=== PATIENT | female | born 1940 | race Asian ===

== ENCOUNTER 2023-01-25 03:22 | Inpatient (IN) | payer OTHER ==
[~2023-01-25] VITALS: Ht 152.4 cm; Wt 51.7 kg
[2023-01-25 03:29] VITALS: BP_SYST 119; PULSE 94; RESP 18; TEMP 98.3; O2SAT 100
[2023-01-25] MEDS ORDERED: ONDANSETRON HCL 4 MG/2 ML VIAL IVP ONE (04:00)
[2023-01-25] MEDS ORDERED: MORPHINE 4 MG INJ. 4 MG/ML VIAL IVP ONE (04:00)
[2023-01-25] MEDS ORDERED: NACL 0.9% 1,000 ML IV ONE (04:00)
[2023-01-25 04:42] LABS: BASOPHILS % (AUTO) 0.1 % (0.0-2.0); EOSINOPHILS # (AUTO) 0.1 K/uL (0.0-0.4); EOSINOPHILS % (AUTO) 0.6 % (0.0-4.0); HEMATOCRIT 30.5 % (36-48); HEMOGLOBIN 9.9 g/dL (12.0-16.0); LYMPHOCYTES % (AUTO) 7.2 % (20.5-51.5); MEAN CORPUSCULAR HEMOGLOBIN 26 pg (27-31); MEAN CORPUSCULAR HGB CONC 33 % (32-36); MEAN CORPUSCULAR VOLUME 81 fL (79.0-98.0); MONOCYTES # (AUTO) 1.9 K/uL (0.0-1.0); MONOCYTES % (AUTO) 13.8 % (1.7-9.3); NEUTROPHILS # (AUTO) 11.1 K/uL (1.8-7.7); NEUTROPHILS % (AUTO) 78.3 % (40.0-70.0); PLATELET COUNT (AUTO) 344 K/uL (130-430); RED BLOOD CELL COUNT(AUTO) 3.75 MIL/uL (4.2-6.2); RED CELL DISTRIBUTION WIDTH 14.1 % (9.0-15.0); WHITE BLOOD COUNT (AUTO) 14.1 K/uL (4.8-10.8)
[2023-01-25 05:08] LABS: ALANINE AMINOTRANSFERASE 18 U/L (12-78); ALBUMIN 2.8 g/dL (3.4-4.8); ANION GAP 11 (5-15); ASPARTATE AMINOTRANSFERASE 13 U/L (10-37); CALCIUM 9.1 mg/dL (8.4-11.0); CARBON DIOXIDE 24 mmol/L (23-29); CREATININE 0.95 mg/dL (0.55-1.30); GLUCOSE 211 mg/dL (74-106); LIPASE 38 U/L (16-77); POTASSIUM 3.3 mmol/L (3.5-5.1); SODIUM SERUM 120 mmol/L (136-145); TOTAL BILIRUBIN 0.5 mg/dL (0.0-1.0); TOTAL PROTEIN, SERUM 7.6 g/dL (6.4-8.3); UREA NITROGEN, BLOOD 10 mg/dL (8-21)
[2023-01-25 05:32] LABS: CLARITY/URINE SLIGHTLY CLOUDY (CLEAR); COLOR,URINE YELLOW (YELLOW)
[2023-01-25 05:33] LABS: BILIRUBIN,URINE NEGATIVE (NEGATIVE); BLOOD, URINE 1+ (NEGATIVE); GLUCOSE,URINE TRACE (NEGATIVE); KETONES,URINE 1+ (NEGATIVE); LEUKOCYTE ESTERASE ,URINE 1+ (NEGATIVE); NITRITE, URINE POSITIVE (NEGATIVE); PROTEIN URINE 2+ (NEGATIVE); UROBILINOGEN,URINE 0.2 (0.2-1.0)
[2023-01-25 05:35] LABS: BACTERIA,URINE MODERATE /HPF (None Seen); WBC,URINE 20-50 /HPF (0-3)
[2023-01-25 05:48] LABS: CHLORIDE 85 mmol/L (98-107)
[2023-01-25] MEDS ORDERED: SODI1TAB3 PO (08:56)
[2023-01-25] MEDS ORDERED: SODI1POW18 PO (08:56)
[2023-01-25] MEDS ORDERED: LOSA100T24 PO (08:56)
[2023-01-25] MEDS ORDERED: METF-380 PO (08:56)
[2023-01-25] MEDS ORDERED: FERR325T30 PO (08:56)
[2023-01-25] MEDS ORDERED: PRAV20TA59 PO (08:56)
[2023-01-25] MEDS ORDERED: AMLO5TAB92 PO (08:56)
[2023-01-25] MEDS ORDERED: CLOP75TA32 PO (08:56)
[2023-01-25] MEDS ORDERED: LEVO75CA5 PO (08:56)
[2023-01-25] MEDS ORDERED: METO-540 PO (08:56)
[2023-01-25] MEDS ORDERED: GLUC100017 PO (08:56)
[2023-01-25] MEDS ORDERED: GLUC500T13 PO (09:06)
[2023-01-25] MEDS ORDERED: NACL 0.9% 1,000 ML IV SCH (09:30)
[2023-01-25 11:57] VITALS: BP_SYST 144; PULSE 82; RESP 16; TEMP 98.3; O2SAT 98
[2023-01-25 12:18] VITALS: BP_SYST 144; PULSE 82; RESP 16; TEMP 98.3; O2SAT 98
[2023-01-25] MEDS: PIPERACILLIN/TAZO 3.375/DEX-IS 50 ML IV SCH ×2 (16:30→21:01)
[2023-01-25 16:33] VITALS: BP_SYST 143; PULSE 82; RESP 17; TEMP 98.4; O2SAT 97
[2023-01-25] MEDS ORDERED: ONDANSETRON HCL 4 MG/2 ML VIAL IVP PRN (17:45)
[2023-01-25] MEDS ORDERED: NALOXONE HCL 0.4 MG/ML AMP (NARCAN) IVP PRN (17:45)
[2023-01-25] MEDS ORDERED: D5NS 500 ML IV SCH (18:00)
[2023-01-25] MEDS: D5NS 1,000 ML IV SCH (18:09)
[2023-01-25 19:31] VITALS: BP_SYST 145; PULSE 87; RESP 20; TEMP 97.6; O2SAT 96
[2023-01-25] MEDS: INSULIN REGULAR, HUMAN 100 UNITS/ML, 3 ML VIAL (humuLIN R) SUBCUT PRN (20:58)
[2023-01-26] VITALS: BP_SYST 143; PULSE 97; RESP 18; TEMP 99; O2SAT 96
[2023-01-26] MEDS: PIPERACILLIN/TAZO 3.375/DEX-IS 50 ML IV SCH ×3 (05:38→21:51)
[2023-01-26] MEDS: INSULIN REGULAR, HUMAN 100 UNITS/ML, 3 ML VIAL (humuLIN R) SUBCUT PRN ×4 (05:42→20:40)
[2023-01-26 08:00] VITALS: BP_SYST 116; PULSE 89; RESP 18; TEMP 97.6; O2SAT 96
[2023-01-26 09:59] LABS: ANION GAP 11 (5-15); CALCIUM 8.6 mg/dL (8.4-11.0); CARBON DIOXIDE 25 mmol/L (23-29); CHLORIDE 94 mmol/L (98-107); CREATININE 0.94 mg/dL (0.55-1.30); GLUCOSE 131 mg/dL (74-106); SODIUM SERUM 130 mmol/L (136-145); UREA NITROGEN, BLOOD 6 mg/dL (8-21)
[2023-01-26 10:01] LABS: POTASSIUM 2.5 mmol/L (3.5-5.1)
[2023-01-26] MEDS ORDERED: KCL 40 mEq in 100 mL (PREMIX) 100 ML IV ONE (10:15)
[2023-01-26] MEDS: POTASSIUM CHLORIDE 20 mEq in 100 mL (PREMIX) 100 ML x 2 doses IV SCH ×2 (11:43→15:57)
[2023-01-26 12:00] VITALS: BP_SYST 136; PULSE 78; RESP 18; TEMP 98.6; O2SAT 99
[2023-01-26] MEDS: D5NS 1,000 ML IV SCH (14:15)
[2023-01-26 16:00] VITALS: BP_SYST 119; PULSE 82; RESP 18; TEMP 96.7; O2SAT 97
[2023-01-26 19:35] VITALS: O2SAT 98
[2023-01-26 20:03] VITALS: BP_SYST 121; PULSE 98; RESP 18; TEMP 98.3; O2SAT 98
[2023-01-26] MEDS: ATORVASTATIN 10 MG TABLET PO SCH (20:34)
[2023-01-26] MEDS: amLODIPine BESYLATE 5 MG TABLET PO SCH (20:34)
[2023-01-26] MEDS ORDERED: PRAVASTATIN SODIUM 20 MG TABLET (PRAVACHOL) PO SCH (21:00)
[2023-01-27] VITALS (9 sets, daily range): BP systolic 121–148; PULSE 78–101; RESP 16–19; TEMP 97.5–99.5; O2SAT 68–99
[2023-01-27 04:18] LABS: BASOPHILS % (AUTO) 0.3 % (0.0-2.0); EOSINOPHILS # (AUTO) 0.2 K/uL (0.0-0.4); EOSINOPHILS % (AUTO) 1.6 % (0.0-4.0); HEMATOCRIT 29.2 % (36-48); HEMOGLOBIN 9.6 g/dL (12.0-16.0); LYMPHOCYTES # (AUTO) 2.2 K/uL (1.0-5.5); MEAN CORPUSCULAR HEMOGLOBIN 27 pg (27-31); MEAN CORPUSCULAR HGB CONC 33 % (32-36); MEAN CORPUSCULAR VOLUME 81 fL (79.0-98.0); MONOCYTES # (AUTO) 1.6 K/uL (0.0-1.0); MONOCYTES % (AUTO) 14.4 % (1.7-9.3); NEUTROPHILS # (AUTO) 7.1 K/uL (1.8-7.7); NEUTROPHILS % (AUTO) 63.7 % (40.0-70.0); PLATELET COUNT (AUTO) 371 K/uL (130-430); RED CELL DISTRIBUTION WIDTH 14.1 % (9.0-15.0); WHITE BLOOD COUNT (AUTO) 11.1 K/uL (4.8-10.8)
[2023-01-27 04:33] LABS: ANION GAP 11 (5-15); CALCIUM 8.7 mg/dL (8.4-11.0); CARBON DIOXIDE 24 mmol/L (23-29); CHLORIDE 95 mmol/L (98-107); CREATININE 0.99 mg/dL (0.55-1.30); GLUCOSE 215 mg/dL (74-106); SODIUM SERUM 130 mmol/L (136-145); UREA NITROGEN, BLOOD 7 mg/dL (8-21)
[2023-01-27] MEDS: PIPERACILLIN/TAZO 3.375/DEX-IS 50 ML IV SCH ×3 (05:03→21:02)
[2023-01-27] MEDS: MORPHINE 2 MG/ML INJ. SYRINGE IVP PRN ×2 (05:08→13:42)
[2023-01-27] MEDS: INSULIN REGULAR, HUMAN 100 UNITS/ML, 3 ML VIAL (humuLIN R) SUBCUT PRN ×4 (06:35→21:06)
[2023-01-27] MEDS: SODIUM CHLORIDE 500 MG TABLET PO SCH (09:20)
[2023-01-27] MEDS: FERROUS SULFATE 325 MG TABLET.DR PO SCH (09:20)
[2023-01-27] MEDS: amLODIPine BESYLATE 5 MG TABLET PO SCH ×2 (09:21→21:01)
[2023-01-27] MEDS: METOPROLOL SUCCINATE 25 MG TAB.SR.24H (TOPROL XL) PO SCH (09:21)
[2023-01-27] MEDS: LOSARTAN POTASSIUM 50 MG TABLET (COZAAR) PO SCH (09:21)
[2023-01-27] MEDS: D5NS 1,000 ML IV SCH (09:22)
[2023-01-27] MEDS ORDERED: methylPREDNISolone 4 MG TABLET PO SCH (11:00)
[2023-01-27] MEDS ORDERED: methylPREDNISolone 4 MG TABLET PO ONE ×3 (11:30→21:00)
[2023-01-27] MEDS: ATORVASTATIN 10 MG TABLET PO SCH (21:01)
[2023-01-27] MEDS: MORPHINE 4 MG INJ. 4 MG/ML VIAL IVP PRN (21:03)
[2023-01-28 00:05] VITALS: BP_SYST 114; PULSE 72; RESP 18; TEMP 97.6; O2SAT 95
[2023-01-28 05:22] LABS: ALANINE AMINOTRANSFERASE 76 U/L (12-78); ALBUMIN 2.2 g/dL (3.4-4.8); ANION GAP 11 (5-15); ASPARTATE AMINOTRANSFERASE 48 U/L (10-37); CALCIUM 8.5 mg/dL (8.4-11.0); CARBON DIOXIDE 23 mmol/L (23-29); CHLORIDE 97 mmol/L (98-107); CREATININE 0.88 mg/dL (0.55-1.30); GLUCOSE 227 mg/dL (74-106); POTASSIUM 3.4 mmol/L (3.5-5.1); SODIUM SERUM 131 mmol/L (136-145); TOTAL BILIRUBIN 0.3 mg/dL (0.0-1.0); TOTAL PROTEIN, SERUM 5.8 g/dL (6.4-8.3); UREA NITROGEN, BLOOD 9 mg/dL (8-21)
[2023-01-28] MEDS: D5NS 1,000 ML IV SCH ×2 (06:08→22:18)
[2023-01-28] MEDS: PIPERACILLIN/TAZO 3.375/DEX-IS 50 ML IV SCH ×3 (06:08→22:14)
[2023-01-28] MEDS: INSULIN REGULAR, HUMAN 100 UNITS/ML, 3 ML VIAL (humuLIN R) SUBCUT PRN ×4 (06:14→22:28)
[2023-01-28] MEDS ORDERED: methylPREDNISolone 4 MG TABLET PO SCH (07:00)
[2023-01-28 07:51] VITALS: BP_SYST 135; PULSE 80; RESP 18; TEMP 98.4
[2023-01-28 08:00] VITALS: O2SAT 99
[2023-01-28] MEDS: METOPROLOL SUCCINATE 25 MG TAB.SR.24H (TOPROL XL) PO SCH (09:11)
[2023-01-28] MEDS: SODIUM CHLORIDE 500 MG TABLET PO SCH (09:12)
[2023-01-28] MEDS: FERROUS SULFATE 325 MG TABLET.DR PO SCH (09:12)
[2023-01-28] MEDS: amLODIPine BESYLATE 5 MG TABLET PO SCH ×2 (09:12→20:18)
[2023-01-28] MEDS: LOSARTAN POTASSIUM 50 MG TABLET (COZAAR) PO SCH (09:12)
[2023-01-28] MEDS: methylPREDNISolone 4 MG TABLET PO SCH ×3 (09:12→17:38)
[2023-01-28 12:39] VITALS: BP_SYST 125; PULSE 73; RESP 18; TEMP 98.4; O2SAT 96
[2023-01-28] MEDS ORDERED: POTASSIUM CHLORIDE 20 MEQ TAB.PRT.SR PO ONE (12:45)
[2023-01-28 16:00] VITALS: BP_SYST 120; PULSE 75; RESP 20; TEMP 98; O2SAT 96
[2023-01-28 20:00] VITALS: BP_SYST 154; PULSE 82; RESP 20; O2SAT 100
[2023-01-28] MEDS: ATORVASTATIN 10 MG TABLET PO SCH (20:40)
[2023-01-28] MEDS ORDERED: methylPREDNISolone 4 MG TABLET PO ONE (21:00)
[2023-01-29 03:20] VITALS: BP_SYST 151; PULSE 82; RESP 20; O2SAT 99
[2023-01-29 05:30] LABS: BASOPHILS % (AUTO) 0.1 % (0.0-2.0); HEMATOCRIT 30.3 % (36-48); HEMOGLOBIN 9.9 g/dL (12.0-16.0); LYMPHOCYTES # (AUTO) 1.3 K/uL (1.0-5.5); LYMPHOCYTES % (AUTO) 7.9 % (20.5-51.5); MEAN CORPUSCULAR HEMOGLOBIN 27 pg (27-31); MEAN CORPUSCULAR HGB CONC 33 % (32-36); MEAN CORPUSCULAR VOLUME 81 fL (79.0-98.0); MONOCYTES # (AUTO) 1.2 K/uL (0.0-1.0); MONOCYTES % (AUTO) 7.2 % (1.7-9.3); NEUTROPHILS # (AUTO) 14.3 K/uL (1.8-7.7); NEUTROPHILS % (AUTO) 84.8 % (40.0-70.0); PLATELET COUNT (AUTO) 554 K/uL (130-430); RED BLOOD CELL COUNT(AUTO) 3.72 MIL/uL (4.2-6.2); RED CELL DISTRIBUTION WIDTH 14.3 % (9.0-15.0); WHITE BLOOD COUNT (AUTO) 16.8 K/uL (4.8-10.8)
[2023-01-29 05:55] LABS: INR 0.9 (0.8-1.2); PROTHROMBIN TIME 9.5 SECS (9.5-12.5)
[2023-01-29 06:05] LABS: ALANINE AMINOTRANSFERASE 55 U/L (12-78); ALBUMIN 2.2 g/dL (3.4-4.8); ANION GAP 10 (5-15); ASPARTATE AMINOTRANSFERASE 22 U/L (10-37); CALCIUM 9.1 mg/dL (8.4-11.0); CARBON DIOXIDE 24 mmol/L (23-29); CHLORIDE 93 mmol/L (98-107); GLUCOSE 300 mg/dL (74-106); POTASSIUM 3.2 mmol/L (3.5-5.1); SODIUM SERUM 127 mmol/L (136-145); TOTAL BILIRUBIN 0.3 mg/dL (0.0-1.0); TOTAL PROTEIN, SERUM 7.3 g/dL (6.4-8.3); UREA NITROGEN, BLOOD 8 mg/dL (8-21)
[2023-01-29] MEDS: PIPERACILLIN/TAZO 3.375/DEX-IS 50 ML IV SCH ×3 (06:32→22:00)
[2023-01-29] MEDS: methylPREDNISolone 4 MG TABLET PO SCH ×3 (06:54→16:27)
[2023-01-29] MEDS: INSULIN REGULAR, HUMAN 100 UNITS/ML, 3 ML VIAL (humuLIN R) SUBCUT PRN ×2 (06:57→23:02)
[2023-01-29 08:00] VITALS: BP_SYST 141; PULSE 72; RESP 18; TEMP 97; O2SAT 99
[2023-01-29] MEDS: FERROUS SULFATE 325 MG TABLET.DR PO SCH (09:00)
[2023-01-29] MEDS ORDERED: FUROSEMIDE 20 MG/2 ML VIAL IVP ONE (10:15)
[2023-01-29] MEDS ORDERED: KCL 20 mEq in 100 mL (PREMIX) 100 ML IV ONE (11:00)
[2023-01-29] MEDS: SODIUM CHLORIDE 500 MG TABLET PO SCH (11:22)
[2023-01-29] MEDS: amLODIPine BESYLATE 5 MG TABLET PO SCH ×2 (11:23→21:00)
[2023-01-29] MEDS: LOSARTAN POTASSIUM 50 MG TABLET (COZAAR) PO SCH (11:24)
[2023-01-29] MEDS: METOPROLOL SUCCINATE 25 MG TAB.SR.24H (TOPROL XL) PO SCH (11:24)
[2023-01-29] MEDS ORDERED: SODIUM CHLORIDE 3% *HI-ALERT* 100 ML IV ONE (11:30)
[2023-01-29] MEDS ORDERED: SODIUM CHLORIDE 3% *HI-ALERT* 100 ML IV SCH (11:30)
[2023-01-29 13:04] LABS: ANION GAP 9 (5-15); CALCIUM 8.7 mg/dL (8.4-11.0); CARBON DIOXIDE 27 mmol/L (23-29); CHLORIDE 97 mmol/L (98-107); CREATININE 0.85 mg/dL (0.55-1.30); GLUCOSE 215 mg/dL (74-106); POTASSIUM 3.1 mmol/L (3.5-5.1); SODIUM SERUM 133 mmol/L (136-145); UREA NITROGEN, BLOOD 7 mg/dL (8-21)
[2023-01-29 15:50] LABS: ANION GAP 10 (5-15); CALCIUM 8.3 mg/dL (8.4-11.0); CARBON DIOXIDE 26 mmol/L (23-29); CHLORIDE 98 mmol/L (98-107); CREATININE 0.78 mg/dL (0.55-1.30); GLUCOSE 216 mg/dL (74-106); POTASSIUM 3.5 mmol/L (3.5-5.1); SODIUM SERUM 134 mmol/L (136-145); UREA NITROGEN, BLOOD 8 mg/dL (8-21)
[2023-01-29] MEDS ORDERED: BUPIVACAINE /PF 0.25% 10 ML VIAL INJ ONE (15:56)
[2023-01-29] MEDS ORDERED: CEFAZOLIN 2 GM IVPB PREMIX 50 ML IV ONE (15:56)
[2023-01-29] MEDS ORDERED: NS 50 ML BAG IV ONE (15:56)
[2023-01-29] MEDS ORDERED: DEXAMETHASONE SOD PHOSPHATE 4 MG/ML VIAL ONE (15:56)
[2023-01-29] MEDS ORDERED: LR 1,000 ML IV.SOLN IV ONE (15:56)
[2023-01-29] MEDS ORDERED: NS IRRIG SOLN 1000 ML IR ONE (15:56)
[2023-01-29] MEDS ORDERED: PROPOFOL 200MG/ 20ML VIAL (DIPRIVAN) IV ONE (15:56)
[2023-01-29] MEDS ORDERED: TRANEXAMIC ACID 1,000 MG/10 ML VIAL IV ONE (15:56)
[2023-01-29] MEDS ORDERED: WATER FOR IRRIGATION,STERILE 1,000 ML IRRIG.SOLN IR ONE (15:56)
[2023-01-29] MEDS ORDERED: KETOROLAC TROMETHAMINE 30 MG VIAL ONE (15:56)
[2023-01-29] MEDS ORDERED: ACETAMINOPHEN I.V. 1000 MG 100 ML IV ONE (18:37)
[2023-01-29] MEDS ORDERED: fentaNYL CITRATE/PF 100 MCG/2 ML AMP ONE (18:37)
[2023-01-29] MEDS ORDERED: ONDANSETRON HCL 4 MG/2 ML VIAL IVP PRN (19:30)
[2023-01-29] MEDS ORDERED: HYDROmorphone 1 MG/ML INJ. CARTRIDGE IVP PRN (19:30)
[2023-01-29] MEDS ORDERED: NALOXONE HCL 0.4 MG/ML AMP (NARCAN) IVP PRN ×2 (19:30)
[2023-01-29] MEDS ORDERED: hydrALAZINE HCL 20 MG/ML VIAL IV PRN (19:30)
[2023-01-29] MEDS ORDERED: ALBUMIN HUMAN 5% 500 ML IV ONE (19:46)
[2023-01-29] MEDS ORDERED: THROMBIN (BOVINE) 5000 UNITS/ VIAL TP ONE (20:15)
[2023-01-29] MEDS ORDERED: SEVOFLURANE 15 MIN GAS INH ONE (22:14)
[2023-01-29] MEDS: HYDROmorphone 1 MG/ML INJ. CARTRIDGE IVP PRN (22:34)
[2023-01-29 22:40] LABS: BASOPHILS # (AUTO) 0.1 K/uL (0.0-0.2); BASOPHILS % (AUTO) 0.5 % (0.0-2.0); EOSINOPHILS % (AUTO) 0.1 % (0.0-4.0); LYMPHOCYTES # (AUTO) 1.9 K/uL (1.0-5.5); LYMPHOCYTES % (AUTO) 10.9 % (20.5-51.5); MEAN CORPUSCULAR HEMOGLOBIN 27 pg (27-31); MEAN CORPUSCULAR HGB CONC 33 % (32-36); MEAN CORPUSCULAR VOLUME 82 fL (79.0-98.0); MONOCYTES # (AUTO) 0.9 K/uL (0.0-1.0); MONOCYTES % (AUTO) 5.3 % (1.7-9.3); NEUTROPHILS # (AUTO) 14.3 K/uL (1.8-7.7); NEUTROPHILS % (AUTO) 83.2 % (40.0-70.0); PLATELET COUNT (AUTO) 431 K/uL (130-430); RED BLOOD CELL COUNT(AUTO) 2.29 MIL/uL (4.2-6.2); RED CELL DISTRIBUTION WIDTH 14.5 % (9.0-15.0); WHITE BLOOD COUNT (AUTO) 17.2 K/uL (4.8-10.8)
[2023-01-29 22:54] LABS: HEMATOCRIT 18.7 % (36-48); HEMOGLOBIN 6.1 g/dL (12.0-16.0)
[2023-01-29 23:00] VITALS: BP_SYST 141; PULSE 62; RESP 18; O2SAT 100
[2023-01-29 23:00] LABS: ALANINE AMINOTRANSFERASE 79 U/L (12-78); ALBUMIN 2.6 g/dL (3.4-4.8); ANION GAP 10 (5-15); ASPARTATE AMINOTRANSFERASE 87 U/L (10-37); CALCIUM 8.1 mg/dL (8.4-11.0); CARBON DIOXIDE 23 mmol/L (23-29); CHLORIDE 101 mmol/L (98-107); CREATININE 0.91 mg/dL (0.55-1.30); GLUCOSE 331 mg/dL (74-106); POTASSIUM 3.3 mmol/L (3.5-5.1); SODIUM SERUM 134 mmol/L (136-145); TOTAL BILIRUBIN 0.2 mg/dL (0.0-1.0); TOTAL PROTEIN, SERUM 5.5 g/dL (6.4-8.3); UREA NITROGEN, BLOOD 11 mg/dL (8-21)
[2023-01-29] MEDS: KCL 20 mEq in D5NS 1000 mL 1,000 ML IV SCH (23:00)
[2023-01-29] MEDS ORDERED: KCL 20 mEq in D5NS 1000 mL 1,000 ML IV ONE (23:01)
[2023-01-30] VITALS (24 sets, daily range): BP systolic 123–190; PULSE 67–77; RESP 13–24; TEMP 96–98.5; O2SAT 95–100
[2023-01-30] MEDS: MORPHINE 2 MG/ML INJ. SYRINGE IVP PRN (00:55)
[2023-01-30] MEDS ORDERED: KCL 20 mEq in 100 mL (PREMIX) 100 ML IV ONE ×2 (01:30→23:00)
[2023-01-30] MEDS: ATORVASTATIN 10 MG TABLET PO SCH ×2 (04:02→21:09)
[2023-01-30] MEDS: methylPREDNISolone 4 MG TABLET PO SCH ×4 (04:02→21:09)
[2023-01-30] MEDS: PIPERACILLIN/TAZO 3.375/DEX-IS 50 ML IV SCH ×3 (05:49→21:10)
[2023-01-30] MEDS: INSULIN REGULAR, HUMAN 100 UNITS/ML, 3 ML VIAL (humuLIN R) SUBCUT PRN ×5 (06:07→21:15)
[2023-01-30] MEDS: MORPHINE 4 MG INJ. 4 MG/ML VIAL IVP PRN ×2 (07:28→18:46)
[2023-01-30 08:11] LABS: BASOPHILS % (AUTO) 0.2 % (0.0-2.0); EOSINOPHILS % (AUTO) 0.1 % (0.0-4.0); HEMATOCRIT 38.4 % (36-48); HEMOGLOBIN 12.6 g/dL (12.0-16.0); LYMPHOCYTES # (AUTO) 1.4 K/uL (1.0-5.5); LYMPHOCYTES % (AUTO) 6.9 % (20.5-51.5); MEAN CORPUSCULAR HEMOGLOBIN 28 pg (27-31); MEAN CORPUSCULAR HGB CONC 33 % (32-36); MEAN CORPUSCULAR VOLUME 86 fL (79.0-98.0); MONOCYTES # (AUTO) 1.3 K/uL (0.0-1.0); MONOCYTES % (AUTO) 6.1 % (1.7-9.3); NEUTROPHILS # (AUTO) 17.9 K/uL (1.8-7.7); NEUTROPHILS % (AUTO) 86.7 % (40.0-70.0); PLATELET COUNT (AUTO) 386 K/uL (130-430); RED BLOOD CELL COUNT(AUTO) 4.49 MIL/uL (4.2-6.2); RED CELL DISTRIBUTION WIDTH 16.4 % (9.0-15.0); WHITE BLOOD COUNT (AUTO) 20.7 K/uL (4.8-10.8)
[2023-01-30] MEDS: SODIUM CHLORIDE 500 MG TABLET PO SCH (08:53)
[2023-01-30] MEDS: FERROUS SULFATE 325 MG TABLET.DR PO SCH (08:53)
[2023-01-30] MEDS: METOPROLOL SUCCINATE 25 MG TAB.SR.24H (TOPROL XL) PO SCH (08:54)
[2023-01-30] MEDS: LOSARTAN POTASSIUM 50 MG TABLET (COZAAR) PO SCH (08:54)
[2023-01-30] MEDS: amLODIPine BESYLATE 5 MG TABLET PO SCH ×2 (09:02→21:09)
[2023-01-30] MEDS: HYDROmorphone 1 MG/ML INJ. CARTRIDGE IVP PRN (14:00)
[2023-01-30] MEDS ORDERED: INSULIN REGULAR, HUMAN 10 UNITS/0.1 ML, 3 ML VIAL IVP ONE ×2 (18:15→23:00)
[2023-01-30] MEDS: KCL 20 mEq in D5NS 1000 mL 1,000 ML IV SCH ×2 (18:16→19:00)
[2023-01-30] MEDS: NACL 0.9% 1,000 ML IV SCH (23:26)
[2023-01-31] VITALS (20 sets, daily range): BP systolic 140–182; PULSE 69–86; RESP 15–28; TEMP 97–98.3; O2SAT 95–100
[2023-01-31 05:55] LABS: BASOPHILS % (AUTO) 0.1 % (0.0-2.0); EOSINOPHILS % (AUTO) 0.1 % (0.0-4.0); HEMATOCRIT 37.9 % (36-48); HEMOGLOBIN 12.4 g/dL (12.0-16.0); LYMPHOCYTES # (AUTO) 2.1 K/uL (1.0-5.5); LYMPHOCYTES % (AUTO) 9.7 % (20.5-51.5); MEAN CORPUSCULAR HEMOGLOBIN 28 pg (27-31); MEAN CORPUSCULAR HGB CONC 33 % (32-36); MEAN CORPUSCULAR VOLUME 86 fL (79.0-98.0); MONOCYTES # (AUTO) 1.6 K/uL (0.0-1.0); MONOCYTES % (AUTO) 7.5 % (1.7-9.3); NEUTROPHILS # (AUTO) 17.6 K/uL (1.8-7.7); NEUTROPHILS % (AUTO) 82.6 % (40.0-70.0); PLATELET COUNT (AUTO) 407 K/uL (130-430); RED BLOOD CELL COUNT(AUTO) 4.41 MIL/uL (4.2-6.2); RED CELL DISTRIBUTION WIDTH 16.5 % (9.0-15.0); WHITE BLOOD COUNT (AUTO) 21.3 K/uL (4.8-10.8)
[2023-01-31] MEDS: PIPERACILLIN/TAZO 3.375/DEX-IS 50 ML IV SCH ×3 (05:59→21:21)
[2023-01-31] MEDS: INSULIN REGULAR, HUMAN 100 UNITS/ML, 3 ML VIAL (humuLIN R) SUBCUT PRN ×4 (06:03→20:38)
[2023-01-31 06:12] LABS: ANION GAP 9 (5-15); CALCIUM 8.9 mg/dL (8.4-11.0); CARBON DIOXIDE 26 mmol/L (23-29); CHLORIDE 97 mmol/L (98-107); CREATININE 0.76 mg/dL (0.55-1.30); GLUCOSE 232 mg/dL (74-106); POTASSIUM 4.1 mmol/L (3.5-5.1); SODIUM SERUM 132 mmol/L (136-145); UREA NITROGEN, BLOOD 22 mg/dL (8-21)
[2023-01-31] MEDS: FERROUS SULFATE 325 MG TABLET.DR PO SCH (09:28)
[2023-01-31] MEDS: LOSARTAN POTASSIUM 50 MG TABLET (COZAAR) PO SCH (09:29)
[2023-01-31] MEDS: amLODIPine BESYLATE 5 MG TABLET PO SCH ×2 (09:30→20:28)
[2023-01-31] MEDS: SODIUM CHLORIDE 500 MG TABLET PO SCH (09:30)
[2023-01-31] MEDS: NACL 0.9% 1,000 ML IV SCH ×2 (09:31→20:28)
[2023-01-31] MEDS ORDERED: methylPREDNISolone 4 MG TABLET PO SCH (10:00)
[2023-01-31] MEDS ORDERED: ENOXAPARIN SODIUM 30 MG/0.3 ML SYRINGE SUBCUT ONE (10:30)
[2023-01-31] MEDS: MORPHINE 2 MG/ML INJ. SYRINGE IVP PRN ×3 (10:53→23:43)
[2023-01-31] MEDS: ATORVASTATIN 10 MG TABLET PO SCH (20:28)
[2023-02-01 00:47] VITALS: BP_SYST 137; PULSE 87; RESP 16; TEMP 97.8; O2SAT 96
[2023-02-01] MEDS: NACL 0.9% 1,000 ML IV SCH ×2 (05:00→11:18)
[2023-02-01 06:00] LABS: BASOPHILS % (AUTO) 0.1 % (0.0-2.0); EOSINOPHILS # (AUTO) 0.2 K/uL (0.0-0.4); EOSINOPHILS % (AUTO) 1.1 % (0.0-4.0); HEMATOCRIT 38.2 % (36-48); HEMOGLOBIN 12.6 g/dL (12.0-16.0); LYMPHOCYTES # (AUTO) 2.7 K/uL (1.0-5.5); LYMPHOCYTES % (AUTO) 14.7 % (20.5-51.5); MEAN CORPUSCULAR HEMOGLOBIN 28 pg (27-31); MEAN CORPUSCULAR HGB CONC 33 % (32-36); MEAN CORPUSCULAR VOLUME 86 fL (79.0-98.0); MONOCYTES % (AUTO) 5.5 % (1.7-9.3); NEUTROPHILS # (AUTO) 14.6 K/uL (1.8-7.7); NEUTROPHILS % (AUTO) 78.6 % (40.0-70.0); PLATELET COUNT (AUTO) 478 K/uL (130-430); RED BLOOD CELL COUNT(AUTO) 4.44 MIL/uL (4.2-6.2); RED CELL DISTRIBUTION WIDTH 16.7 % (9.0-15.0); WHITE BLOOD COUNT (AUTO) 18.6 K/uL (4.8-10.8)
[2023-02-01 06:14] LABS: ALANINE AMINOTRANSFERASE 46 U/L (12-78); ALBUMIN 2.1 g/dL (3.4-4.8); ANION GAP 10 (5-15); ASPARTATE AMINOTRANSFERASE 27 U/L (10-37); CALCIUM 8.4 mg/dL (8.4-11.0); CARBON DIOXIDE 24 mmol/L (23-29); CHLORIDE 94 mmol/L (98-107); CREATININE 0.78 mg/dL (0.55-1.30); GLUCOSE 187 mg/dL (74-106); POTASSIUM 3.1 mmol/L (3.5-5.1); SODIUM SERUM 128 mmol/L (136-145); TOTAL BILIRUBIN 0.5 mg/dL (0.0-1.0); UREA NITROGEN, BLOOD 10 mg/dL (8-21)
[2023-02-01] MEDS: INSULIN REGULAR, HUMAN 100 UNITS/ML, 3 ML VIAL (humuLIN R) SUBCUT PRN ×3 (06:24→17:30)
[2023-02-01] MEDS ORDERED: methylPREDNISolone 4 MG TABLET PO ONE (07:00)
[2023-02-01 08:00] VITALS: BP_SYST 167; PULSE 100; RESP 18; TEMP 98.5; O2SAT 98
[2023-02-01] MEDS: FERROUS SULFATE 325 MG TABLET.DR PO SCH (08:11)
[2023-02-01] MEDS: amLODIPine BESYLATE 5 MG TABLET PO SCH ×2 (08:12→20:48)
[2023-02-01] MEDS: SODIUM CHLORIDE 500 MG TABLET PO SCH (08:13)
[2023-02-01] MEDS: ENOXAPARIN SODIUM 30 MG/0.3 ML SYRINGE SUBCUT SCH (08:14)
[2023-02-01] MEDS: LOSARTAN POTASSIUM 50 MG TABLET (COZAAR) PO SCH (08:14)
[2023-02-01] MEDS: MORPHINE 2 MG/ML INJ. SYRINGE IVP PRN (11:10)
[2023-02-01] MEDS: PIPERACILLIN/TAZOBACTAM 2.25 GM/ D5W 50 ML IV SCH ×4 (11:46→17:30)
[2023-02-01 11:57] VITALS: BP_SYST 153; PULSE 94; RESP 17; TEMP 98; O2SAT 97
[2023-02-01] MEDS ORDERED: PIPERACILLIN/TAZO 3.375/DEX-IS 50 ML IV SCH ×2 (12:00)
[2023-02-01] MEDS ORDERED: SODIUM CHLORIDE 3% *HI-ALERT* 250 ML IV ONE (12:00)
[2023-02-01 17:19] VITALS: BP_SYST 114; PULSE 88; RESP 18; TEMP 98.4; O2SAT 98
[2023-02-01] MEDS: ATORVASTATIN 10 MG TABLET PO SCH (20:47)
[2023-02-01] MEDS ORDERED: BISACODYL 10 MG/SUPPOSITORY RC ONE (21:15)
[2023-02-01] MEDS ORDERED: MILK OF MAGNESIA 30 ML UDC PO ONE (21:15)
[2023-02-01 21:30] VITALS: O2SAT 96
[2023-02-02 00:15] VITALS: BP_SYST 159; PULSE 95; RESP 14; TEMP 97.7; O2SAT 98
[2023-02-02] MEDS: PIPERACILLIN/TAZOBACTAM 2.25 GM/ D5W 50 ML IV SCH ×10 (00:58→23:29)
[2023-02-02] MEDS: NACL 0.9% 1,000 ML IV SCH ×2 (01:00→06:33)
[2023-02-02 05:24] LABS: ANION GAP 12 (5-15); CALCIUM 7.9 mg/dL (8.4-11.0); CARBON DIOXIDE 24 mmol/L (23-29); CHLORIDE 97 mmol/L (98-107); CREATININE 0.69 mg/dL (0.55-1.30); GLUCOSE 224 mg/dL (74-106); SODIUM SERUM 133 mmol/L (136-145); UREA NITROGEN, BLOOD 11 mg/dL (8-21)
[2023-02-02 05:41] LABS: POTASSIUM 2.7 mmol/L (3.5-5.1)
[2023-02-02] MEDS ORDERED: POTASSIUM CHLORIDE 40 MEQ in NS 250 ML IV ONE (06:45)
[2023-02-02 08:00] VITALS: BP_SYST 152; PULSE 89; RESP 18; TEMP 98.8; O2SAT 97; O2SAT 99
[2023-02-02 09:09] LABS: BASOPHILS % (AUTO) 0.3 % (0.0-2.0); EOSINOPHILS # (AUTO) 0.1 K/uL (0.0-0.4); EOSINOPHILS % (AUTO) 0.7 % (0.0-4.0); HEMATOCRIT 37.2 % (36-48); HEMOGLOBIN 12.2 g/dL (12.0-16.0); LYMPHOCYTES # (AUTO) 1.5 K/uL (1.0-5.5); LYMPHOCYTES % (AUTO) 9.5 % (20.5-51.5); MEAN CORPUSCULAR HEMOGLOBIN 28 pg (27-31); MEAN CORPUSCULAR HGB CONC 33 % (32-36); MEAN CORPUSCULAR VOLUME 86 fL (79.0-98.0); MONOCYTES # (AUTO) 0.8 K/uL (0.0-1.0); MONOCYTES % (AUTO) 5.1 % (1.7-9.3); NEUTROPHILS # (AUTO) 12.9 K/uL (1.8-7.7); NEUTROPHILS % (AUTO) 84.4 % (40.0-70.0); PLATELET COUNT (AUTO) 545 K/uL (130-430); RED BLOOD CELL COUNT(AUTO) 4.32 MIL/uL (4.2-6.2); RED CELL DISTRIBUTION WIDTH 16.4 % (9.0-15.0); WHITE BLOOD COUNT (AUTO) 15.3 K/uL (4.8-10.8)
[2023-02-02 09:27] LABS: ANION GAP 10 (5-15); CALCIUM 8.1 mg/dL (8.4-11.0); CARBON DIOXIDE 27 mmol/L (23-29); CHLORIDE 95 mmol/L (98-107); CREATININE 0.84 mg/dL (0.55-1.30); GLUCOSE 228 mg/dL (74-106); SODIUM SERUM 132 mmol/L (136-145); UREA NITROGEN, BLOOD 9 mg/dL (8-21)
[2023-02-02] MEDS: LOSARTAN POTASSIUM 50 MG TABLET (COZAAR) PO SCH (09:27)
[2023-02-02] MEDS: amLODIPine BESYLATE 5 MG TABLET PO SCH ×2 (09:28→20:56)
[2023-02-02] MEDS: SPIRONOLACTONE 25 MG TABLET (ALDACTONE) PO SCH (09:28)
[2023-02-02 09:29] LABS: POTASSIUM 2.5 mmol/L (3.5-5.1)
[2023-02-02] MEDS: ENOXAPARIN SODIUM 30 MG/0.3 ML SYRINGE SUBCUT SCH (09:29)
[2023-02-02 11:47] VITALS: BP_SYST 135; PULSE 90; RESP 17; TEMP 99; O2SAT 97
[2023-02-02] MEDS: INSULIN REGULAR, HUMAN 100 UNITS/ML, 3 ML VIAL (humuLIN R) SUBCUT PRN ×3 (12:18→21:02)
[2023-02-02 16:51] VITALS: BP_SYST 149; PULSE 93; RESP 18; TEMP 98; O2SAT 99
[2023-02-02 20:00] VITALS: BP_SYST 142; PULSE 97; RESP 18; TEMP 97.5; O2SAT 97
[2023-02-02] MEDS: ATORVASTATIN 10 MG TABLET PO SCH (20:55)
[2023-02-02] MEDS ORDERED: POTASSIUM CHLORIDE 20 MEQ TAB.PRT.SR PO ONE (21:00)
[2023-02-02] MEDS ORDERED: traMADol HCL HCL 50 MG TABLET (ULTRAM) PO PRN (21:00)
[2023-02-03 00:48] VITALS: BP_SYST 142; PULSE 93; RESP 17; TEMP 97.3; O2SAT 97
[2023-02-03] MEDS: PIPERACILLIN/TAZOBACTAM 2.25 GM/ D5W 50 ML IV SCH ×8 (05:24→23:30)
[2023-02-03] MEDS: INSULIN REGULAR, HUMAN 100 UNITS/ML, 3 ML VIAL (humuLIN R) SUBCUT PRN ×4 (06:03→21:20)
[2023-02-03 07:47] VITALS: BP_SYST 140; PULSE 87; RESP 18; TEMP 98.6; O2SAT 97
[2023-02-03] MEDS: SPIRONOLACTONE 25 MG TABLET (ALDACTONE) PO SCH (08:38)
[2023-02-03] MEDS: amLODIPine BESYLATE 5 MG TABLET PO SCH ×2 (08:39→21:12)
[2023-02-03] MEDS: LOSARTAN POTASSIUM 50 MG TABLET (COZAAR) PO SCH (08:40)
[2023-02-03] MEDS: ENOXAPARIN SODIUM 30 MG/0.3 ML SYRINGE SUBCUT SCH (08:40)
[2023-02-03] MEDS ORDERED: COLC0.6T67 PO (09:58)
[2023-02-03] MEDS ORDERED: SPIR25TA PO (09:58)
[2023-02-03 10:00] VITALS: O2SAT 98
[2023-02-03] MEDS ORDERED: LEVO-62 PO (10:12)
[2023-02-03] MEDS ORDERED: COLCHICINE 0.6 MG TABLET PO ONE (10:15)
[2023-02-03 10:39] LABS: ANION GAP 8 (5-15); CALCIUM 8.7 mg/dL (8.4-11.0); CARBON DIOXIDE 27 mmol/L (23-29); CHLORIDE 93 mmol/L (98-107); CREATININE 0.82 mg/dL (0.55-1.30); GLUCOSE 240 mg/dL (74-106); POTASSIUM 3.6 mmol/L (3.5-5.1); SODIUM SERUM 128 mmol/L (136-145); UREA NITROGEN, BLOOD 14 mg/dL (8-21)
[2023-02-03 11:29] VITALS: BP_SYST 159; PULSE 86; RESP 18; TEMP 97.8
[2023-02-03 15:41] VITALS: BP_SYST 143; PULSE 84; RESP 18; TEMP 98.9
[2023-02-03 20:15] VITALS: BP_SYST 145; PULSE 73; RESP 18; TEMP 97.9; O2SAT 98
[2023-02-03] MEDS: COLCHICINE 0.6 MG TABLET PO SCH (21:11)
[2023-02-03] MEDS: ATORVASTATIN 10 MG TABLET PO SCH (21:11)
[2023-02-04 00:52] VITALS: BP_SYST 126; PULSE 90; RESP 16; TEMP 98.4; O2SAT 98
[2023-02-04 05:39] LABS: BASOPHILS # (AUTO) 0.1 K/uL (0.0-0.2); BASOPHILS % (AUTO) 0.7 % (0.0-2.0); EOSINOPHILS # (AUTO) 0.2 K/uL (0.0-0.4); EOSINOPHILS % (AUTO) 1.9 % (0.0-4.0); HEMOGLOBIN 11.6 g/dL (12.0-16.0); LYMPHOCYTES # (AUTO) 1.9 K/uL (1.0-5.5); LYMPHOCYTES % (AUTO) 17.5 % (20.5-51.5); MEAN CORPUSCULAR HEMOGLOBIN 28 pg (27-31); MEAN CORPUSCULAR HGB CONC 32 % (32-36); MEAN CORPUSCULAR VOLUME 86 fL (79.0-98.0); MONOCYTES # (AUTO) 0.9 K/uL (0.0-1.0); MONOCYTES % (AUTO) 8.5 % (1.7-9.3); NEUTROPHILS # (AUTO) 7.6 K/uL (1.8-7.7); NEUTROPHILS % (AUTO) 71.4 % (40.0-70.0); PLATELET COUNT (AUTO) 639 K/uL (130-430); RED BLOOD CELL COUNT(AUTO) 4.17 MIL/uL (4.2-6.2); RED CELL DISTRIBUTION WIDTH 16.1 % (9.0-15.0); WHITE BLOOD COUNT (AUTO) 10.6 K/uL (4.8-10.8)
[2023-02-04 05:55] LABS: ANION GAP 7 (5-15); CALCIUM 8.8 mg/dL (8.4-11.0); CARBON DIOXIDE 30 mmol/L (23-29); CHLORIDE 98 mmol/L (98-107); CREATININE 0.85 mg/dL (0.55-1.30); GLUCOSE 173 mg/dL (74-106); POTASSIUM 3.5 mmol/L (3.5-5.1); SODIUM SERUM 135 mmol/L (136-145); UREA NITROGEN, BLOOD 10 mg/dL (8-21)
[2023-02-04] MEDS: PIPERACILLIN/TAZOBACTAM 2.25 GM/ D5W 50 ML IV SCH ×6 (06:42→17:33)
[2023-02-04] MEDS: INSULIN REGULAR, HUMAN 100 UNITS/ML, 3 ML VIAL (humuLIN R) SUBCUT PRN ×4 (06:45→21:11)
[2023-02-04 08:00] VITALS: O2SAT 97
[2023-02-04 08:49] VITALS: BP_SYST 131; PULSE 103; RESP 18; TEMP 98; O2SAT 99
[2023-02-04] MEDS: ENOXAPARIN SODIUM 30 MG/0.3 ML SYRINGE SUBCUT SCH (09:22)
[2023-02-04] MEDS: SPIRONOLACTONE 25 MG TABLET (ALDACTONE) PO SCH (09:23)
[2023-02-04] MEDS: amLODIPine BESYLATE 5 MG TABLET PO SCH ×2 (09:23→21:00)
[2023-02-04] MEDS: COLCHICINE 0.6 MG TABLET PO SCH ×2 (09:23→21:00)
[2023-02-04] MEDS: LOSARTAN POTASSIUM 50 MG TABLET (COZAAR) PO SCH (09:24)
[2023-02-04 16:32] VITALS: BP_SYST 128; PULSE 88; RESP 18; TEMP 98
[2023-02-04 20:20] VITALS: BP_SYST 112; PULSE 84; RESP 16; TEMP 97.9; O2SAT 98
[2023-02-04] MEDS: ATORVASTATIN 10 MG TABLET PO SCH (21:01)
[2023-02-05 00:13] VITALS: BP_SYST 141; PULSE 93; RESP 17; TEMP 97.3; O2SAT 97
[2023-02-05] MEDS: PIPERACILLIN/TAZOBACTAM 2.25 GM/ D5W 50 ML IV SCH ×6 (00:19→12:51)
[2023-02-05] MEDS: INSULIN REGULAR, HUMAN 100 UNITS/ML, 3 ML VIAL (humuLIN R) SUBCUT PRN ×2 (07:09→12:34)
[2023-02-05 08:00] VITALS: O2SAT 99
[2023-02-05 08:19] VITALS: BP_SYST 110; PULSE 91; RESP 18; TEMP 98.1; O2SAT 99
[2023-02-05] MEDS: amLODIPine BESYLATE 5 MG TABLET PO SCH (09:16)
[2023-02-05] MEDS: COLCHICINE 0.6 MG TABLET PO SCH (09:16)
[2023-02-05] MEDS: SPIRONOLACTONE 25 MG TABLET (ALDACTONE) PO SCH (09:17)
[2023-02-05] MEDS: LOSARTAN POTASSIUM 50 MG TABLET (COZAAR) PO SCH (09:17)
[2023-02-05] MEDS: ENOXAPARIN SODIUM 30 MG/0.3 ML SYRINGE SUBCUT SCH (09:18)
[2023-02-05 12:00] VITALS: BP_SYST 115; PULSE 87; RESP 18; TEMP 98; O2SAT 98
[2023-02-05 12:09] LABS: ANION GAP 13 (5-15); CALCIUM 9.2 mg/dL (8.4-11.0); CARBON DIOXIDE 27 mmol/L (23-29); CHLORIDE 91 mmol/L (98-107); CREATININE 1.12 mg/dL (0.55-1.30); GLUCOSE 221 mg/dL (74-106); SODIUM SERUM 131 mmol/L (136-145); UREA NITROGEN, BLOOD 14 mg/dL (8-21)
[2023-02-05 12:47] VITALS: BP_SYST 151; PULSE 90; RESP 18; TEMP 98.1; O2SAT 97
[2023-02-05] MEDS ORDERED: POTASSIUM CHLORIDE 20 MEQ/PKT PACKET PO ONE (15:30)
== END 2023-02-05 16:00 | disposition home or self-care (01) | DRG 414 ==
LOC: SED 03:22 → STU 09:26 → SIC 01-29 22:23 → STU 01-31 19:08
PROVIDERS: ADMIT Specialist; ATTEND Specialist
PROC: 0FJ44ZZ Inspection of Gallbladder, Percutaneous Endoscopic Approach (ICD-10-PCS; 2023-01-29)
PROC: 0DNU0ZZ Release Omentum, Open Approach (ICD-10-PCS; 2023-01-29)
PROC: 0DN90ZZ Release Duodenum, Open Approach (ICD-10-PCS; 2023-01-29)
PROC: 0DNL0ZZ Release Transverse Colon, Open Approach (ICD-10-PCS; 2023-01-29)
PROC: 30233N1 Transfusion of Nonautologous Red Blood Cells into Peripheral Vein, Percutaneous Approach (ICD-10-PCS; 2023-01-29)
PROC: 0W9G00Z Drainage of Peritoneal Cavity with Drainage Device, Open Approach (ICD-10-PCS; 2023-01-29)
PROC: 02HV33Z Insertion of Infusion Device into Superior Vena Cava, Percutaneous Approach (ICD-10-PCS; 2023-01-29)
PROC: B548ZZA Ultrasonography of Superior Vena Cava, Guidance (ICD-10-PCS; 2023-01-29)
PROC: 0FT40ZZ Resection of Gallbladder, Open Approach (ICD-10-PCS; principal; 2023-01-29 18:17)
DX: K81.2 Acute cholecystitis with chronic cholecystitis (principal); K65.3 Choleperitonitis; E87.1 Hypo-osmolality and hyponatremia; N30.00 Acute cystitis without hematuria; E44.0 Moderate protein-calorie malnutrition; E03.9 Hypothyroidism, unspecified; E78.5 Hyperlipidemia, unspecified; K82.8 Other specified diseases of gallbladder; I10 Essential (primary) hypertension; E11.9 Type 2 diabetes mellitus without complications; D64.9 Anemia, unspecified; B96.5 Pseudomonas (aeruginosa) (mallei) (pseudomallei) as the cause of diseases classified elsewhere; M70.72 Other bursitis of hip, left hip; M10.9 Gout, unspecified; E87.6 Hypokalemia; Z88.2 Allergy status to sulfonamides; Z79.899 Other long term (current) drug therapy; Z53.31 Laparoscopic surgical procedure converted to open procedure; Y93.89 Activity, other specified; Z68.22 Body mass index [BMI] 22.0-22.9, adult
CPT/HCPCS: 36415; 71045; 73502; 76376; 76700-TC; 78226; 80048; 80053; 81000; 81001; 81015; 82962; 83690; 84132; 84443; 84484; 84550; 85025; 85610-TC; 85730-TC; 86886; 86900; 86901; 86920; 87040; 87081; 87086; 88304; 93005; 96361; 96365; 96375; 97110-GP; 97116-GP; 97530-GP; 99285; A9537; C1727; G0378; J0131; J0690; J1100; J1170; J1650; J1815; J1885; J1940; J1956; J2270; J2405; J2543; J2704; J3010; J3480; J3490; J7050; J7060; J7120; J7509; P9021